=== PATIENT | female | born 1995 | race Caucasian/White ===

== ENCOUNTER 2016-06-08 12:18 | Emergency (ER) | payer OTHER ==
[2016-06-08] MEDS ORDERED: PROCHLORPERAZINE 10 MG/2 ML VIAL IVP STA (13:17)
[2016-06-08] MEDS ORDERED: SODIUM CHLORIDE 0.9% 1,000 ML IV ONE (13:17)
[2016-06-08] MEDS ORDERED: DEXAMETHASONE 10 MG/ML VIAL IVP STA (13:17)
[2016-06-08] MEDS ORDERED: diphenhydrAMINE INJ 50 MG/ML VIAL IVP STA (13:17)
[2016-06-08] MEDS ORDERED: diphenhydrAMINE INJ 50 MG/ML VIAL ONE (13:32)
[2016-06-08] MEDS ORDERED: PROMETHAZINE 25 MG/1 ML VIAL ONE (13:32)
[2016-06-08] MEDS ORDERED: DEXAMETHASONE 10 MG/ML VIAL ONE (13:33)
[2016-06-08] MEDS ORDERED: PROCHLORPERAZINE 10 MG/2 ML VIAL ONE (13:40)
== END 2016-06-08 14:34 | disposition home or self-care (01) ==
DX: R51 Headache (principal); R03.0 Elevated blood-pressure reading, without diagnosis of hypertension; O26.891 Other specified pregnancy related conditions, first trimester; Z3A.13 13 weeks gestation of pregnancy

== ENCOUNTER 2017-03-07 16:43 | Emergency (ER) | payer OTHER ==
[2017-03-07 17:11] VITALS: BP 122/77
--- NOTE | 2017-03-07 17:24 | ED Physician Documentation ---
PD HPI UPPER EXT INJURY - Stated complaint Stated Complaint: R WRIST PX - Chief complaint Chief Complaint: Ext Problem - History obtained from History obtained from: Patient - History of Present Illness Location: Other (For the last 2 weeks without specific injury She has had pain over the dorsal wrist especially with flexion and extension. 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.) Review of Systems Constitutional: denies: Fever, Chills Cardiac: denies: Chest pain / pressure, Palpitations Respiratory: denies: Dyspnea, Cough GI: denies: Abdominal Pain PD PAST MEDICAL HISTORY - Past Medical History Neuro: Headache/migraine - Past Surgical History Past Surgical History: No - Present Medications Home Medications: Ambulatory Orders Medication Instructions Recorded Confirmed No Known Home Medications [No 03/07/17 03/07/17 Known Home Medications] - Allergies Allergies/Adverse Reactions: Allergies Allergy/AdvReac Type Severity Reaction Status Date / Time No Known Drug Allergies Allergy Verified 03/07/17 17:10 - Social History Does the pt smoke?: No Smoking Status: Never smoker PD ED PE NORMAL - Vitals Vital signs reviewed: Yes - General General: Alert and oriented X 3, No acute distress - Extremities Extremities: Other (There is no bony tenderness of the wrist, she does have pain especially with flexion and extension of the wrist more so than she does with internal or external deviation. No warmth or redness.) - Neuro Neuro: Alert and oriented X 3, Normal speech Results - Vitals Vitals: Vital Signs - 24 hr 03/07/17 17:04 Temperature 36.5 C Heart Rate 86 Respiratory 18 Rate Blood Pressure 122/77 O2 Saturation 100 Oxygen O2 Source Room air PD MEDICAL DECISION MAKING - ED course ED course: History and physical examination is consistent with a tendinitis of the right wrist. She is placed in a Velcro splint and light duty at work was advised and to follow-up with her primary care physician. Departure - Departure Disposition: Home, Self Care Clinical Impression: Right wrist tendinitis Condition: Good Record reviewed to determine appropriate education?: Yes Instructions: Wrist Sprain, ED Splint Care Velcro Comments: Continue the ibuprofen [place] consideration for physical therapy. Return for new complaints or if worse. Forms: Activity restrictions
== END 2017-03-07 17:37 | disposition home or self-care (01) ==
LOC: ED 16:43
DX: M77.9 Enthesopathy, unspecified (principal)
CPT/HCPCS: 99282